=== PATIENT | female | born 1950 | race Caucasian/White ===

== ENCOUNTER → 2016-12-26 | Outpatient (CLI) | payer MEDICARE, BC ==
[~2016-12-26] MED LIST: ALPR0.254 PO; AMIO100T4 PO; AMIO200T42 PO; AMOX1TAB64 PO; ASPI-496 PO; ASPI-621 PO; ATOR80TA75 PO; FURO-93 PO; INSU100C SQ-INSULIN; INSU100I7 SQ-INSULIN; INSU100V8 SQ; LOSA25TA5 PO; LOSA50TA6 PO; OMEP-110 PO; OXYC5TAB3 PO; POTA20TA14 PO; POTA20TA37 PO; PRAS10TA4 PO; SPIR25TA3 PO; WARF10TA PO-COUM; WARF6TAB PO
== END | disposition home or self-care (01) ==
LOC: WOUND 12:46
PROVIDERS: ATTEND Podiatrist Foot & Ankle Surgery
DX: E11.621 Type 2 diabetes mellitus with foot ulcer (principal); L97.521 Non-pressure chronic ulcer of other part of left foot limited to breakdown of skin; I10 Essential (primary) hypertension; I25.10 Atherosclerotic heart disease of native coronary artery without angina pectoris; I25.2 Old myocardial infarction; K21.9 Gastro-esophageal reflux disease without esophagitis; E78.5 Hyperlipidemia, unspecified; I48.91 Unspecified atrial fibrillation; Z95.1 Presence of aortocoronary bypass graft; Z87.891 Personal history of nicotine dependence
CPT/HCPCS: 97597; G0463; WOU0463

== ENCOUNTER → 2017-01-02 | Outpatient (CLI) | payer MEDICARE, BC | END | disposition home or self-care (01) | LOC: WOUND 09:30 | PROVIDERS: ATTEND Podiatrist Foot & Ankle Surgery | DX: E11.621 Type 2 diabetes mellitus with foot ulcer (principal); L97.521 Non-pressure chronic ulcer of other part of left foot limited to breakdown of skin; I25.10 Atherosclerotic heart disease of native coronary artery without angina pectoris; K21.9 Gastro-esophageal reflux disease without esophagitis; E78.5 Hyperlipidemia, unspecified; I25.2 Old myocardial infarction; I48.91 Unspecified atrial fibrillation; I11.0 Hypertensive heart disease with heart failure; I50.9 Heart failure, unspecified; Z95.1 Presence of aortocoronary bypass graft; Z87.891 Personal history of nicotine dependence | CPT/HCPCS: 97597 ==

== ENCOUNTER → 2017-01-09 | Outpatient (CLI) | payer MEDICARE, BC | END | disposition home or self-care (01) | LOC: WOUND 09:30 | PROVIDERS: ATTEND Podiatrist Foot & Ankle Surgery | DX: E11.621 Type 2 diabetes mellitus with foot ulcer (principal); L97.521 Non-pressure chronic ulcer of other part of left foot limited to breakdown of skin; I25.10 Atherosclerotic heart disease of native coronary artery without angina pectoris; K21.9 Gastro-esophageal reflux disease without esophagitis; I11.0 Hypertensive heart disease with heart failure; I50.9 Heart failure, unspecified; I25.2 Old myocardial infarction; I48.91 Unspecified atrial fibrillation; Z95.1 Presence of aortocoronary bypass graft; Z87.891 Personal history of nicotine dependence | CPT/HCPCS: 97597 ==

== ENCOUNTER → 2017-01-16 | Outpatient (CLI) | payer MEDICARE, BC | END | disposition home or self-care (01) | LOC: WOUND 09:17 | PROVIDERS: ATTEND Podiatrist Foot & Ankle Surgery | DX: E11.621 Type 2 diabetes mellitus with foot ulcer (principal); L97.521 Non-pressure chronic ulcer of other part of left foot limited to breakdown of skin; K21.9 Gastro-esophageal reflux disease without esophagitis; I11.0 Hypertensive heart disease with heart failure; I50.9 Heart failure, unspecified; I25.2 Old myocardial infarction; I48.91 Unspecified atrial fibrillation; E78.5 Hyperlipidemia, unspecified; Z87.891 Personal history of nicotine dependence; Z90.710 Acquired absence of both cervix and uterus; Z95.1 Presence of aortocoronary bypass graft | CPT/HCPCS: G0463; WOU0463 ==

== ENCOUNTER 2018-10-10 16:39 | Emergency (ER) | payer MEDICARE, BC ==
[~2018-10-10] VITALS: Ht 167.6 cm; Wt 93.4 kg
[~2018-10-10 16:39] MED LIST changes: -ASPI-621 PO; +ASPI81TA45 PO; +ATOR-2 PO; -ATOR80TA75 PO; +LOSA25TA25 PO; -LOSA25TA5 PO; +LOSA50TA14 PO; -LOSA50TA6 PO; -SPIR25TA3 PO; +SPIR25TA5 PO
--- NOTE | 2018-10-10 17:08 | NUR ---
PT REPORTS SHE HAS NOT FELT WELL SINCE HER "HEART SURGERY" ONE YEAR AGO, VALVE REPLACEMENT. STATES TODAY SHE "JUST DIDNT FEEL WELL" AND CHECKED HER HEART RATE AND IT WAS 110-115, PT REPORTS HX A-FIB, TAKES COUMADIN. DENIES N/V/D, DENIES ABD PAIN. UNABLE TO SPECIFY EXACT COMPLAINT. SKIN HOT TO TOUCH, FEVER 100.6.
--- NOTE | 2018-10-10 17:19 | NUR ---
PT ON CONT CARDIAC AND PULSE OX MONITORING. AWAITING MD BLACK, DENIES NEEDS AT THIS TIME
[2018-10-10 18:07] LABS: BASOPHILS # (AUTO) 0.01 x10^3/uL (0-0.1); BASOPHILS % (AUTO) 0 % (0-1); EOSINOPHILS # (AUTO) 0.09 x10^3/uL (0-0.4); EOSINOPHILS % (AUTO) 1 % (1-7); LYMPHOCYTES # (AUTO) 1.15 x10^3/uL (1-3.4); LYMPHOCYTES % (AUTO) 11 % (22-44); MD NO; MEAN CORPUSCULAR HEMOGLOBIN 29.2 pg (27.0-34.8); MEAN CORPUSCULAR HGB CONC 33.9 g/dL (32.4-35.8); MEAN CORPUSCULAR VOLUME 86.1 fL (80-100); MONOCYTES # (AUTO) 0.77 x10^3/uL (0.2-0.8); MONOCYTES % (AUTO) 7 % (2-9); NEUTROPHILS % (AUTO) 81 % (42-75); PLATELET COUNT 362 x10^3/uL (130-400); RED BLOOD COUNT 4.75 x10^6/uL (3.82-5.3); RED CELL DISTRIBUTION WIDTH 14.6 % (9.6-15.2)
[2018-10-10 18:13] LABS: ALBUMIN 3.3 g/dL (3.4-5.0); ANION GAP 6 mmol/L (5-15); CALCIUM 8.7 mg/dL (8.5-10.1); CHLORIDE 106 mmol/L (98-107); CREATININE 1.02 mg/dL (0.55-1.02)
[2018-10-10 18:17] LABS: INTERNATIONAL NORMALIZED RATIO 1.83 (0.93-1.1); TROPONIN I < 0.015 ng/mL (0.000-0.045)
[2018-10-10] MEDS ORDERED: LOSA50TA14 PO (18:24)
[2018-10-10] MEDS ORDERED: SPIR25TA5 PO (18:24)
--- NOTE | 2018-10-10 18:30 | NUR ---
PT RESTING QUIETLY ON BED W/ SIDE RAILS UP X 2, CALL LIGHT W/IN REACH. REPORTS RT SIDED VAIL DEVELOPING. DENIES OTHER PAIN. HAS NOT HAD ANTIPYRETIC TODAY. A&OX4, RESP EVEN & UNLABORED, SPEECH CLEAR, CHEEKS FLUSHED, SKIN W/D. CARDIAC & VS MONITORING CONTINUES. NO ADDITIONAL NEEDS, AT THIS TIME.
[2018-10-10] MEDS ORDERED: ACETAMINOPHEN 500 MG TABLET PO ONE (19:00)
[2018-10-10] MEDS ORDERED: ACETAMINOPHEN 500 MG TABLET ONE (19:17)
--- NOTE | 2018-10-10 19:20 | NUR ---
TASK RN: Pt medicated per MAR.
[2018-10-10 19:56] VITALS: BP 117/60
== END 2018-10-10 19:58 | disposition home or self-care (01) ==
LOC: ED 18:42
DX: J10.1 Influenza due to other identified influenza virus with other respiratory manifestations (principal); B34.9 Viral infection, unspecified; R00.2 Palpitations; E11.9 Type 2 diabetes mellitus without complications; I10 Essential (primary) hypertension
CPT/HCPCS: 36415; 71045; 80048; 82040; 84484; 85025; 85610; 93005; 99284